=== PATIENT | male | born 1975 | race Caucasian/White ===

== ENCOUNTER 2020-11-07 17:04 | Emergency (ER) | payer SELFPAY ==
[2020-11-07 17:38] VITALS: BP 184/106; PULSE 95; TEMP 98.1; BMI 27.3
== END 2020-11-07 18:49 | disposition home or self-care (01) ==
LOC: JERFT 17:04
DX: L30.9 Dermatitis, unspecified (principal); R21 Rash and other nonspecific skin eruption
CPT/HCPCS: 99281-25

== ENCOUNTER 2020-11-15 20:57 | Inpatient (IN) | payer OTHER ==
[2020-11-15] MEDS ORDERED: FAMOTIDINE 20 MG/50 ML IVPB 20 MG/50 ML MG IVPB ONE ×2 (22:50→22:57)
[2020-11-15] MEDS ORDERED: SODIUM CHLORIDE 1,000 ML IV STA (22:50)
[2020-11-15] MEDS ORDERED: ACETAMINOPHEN 500 MG TABLET (FP) PO ONE (22:50)
[2020-11-15] MEDS ORDERED: ACETAMINOPHEN 325 MG TABLET (FP) ONE (22:56)
[2020-11-15 23:00] LABS: BASO % 0.5 % (0-2.0); EOS % 1.8 % (0-4.5); HEMATOCRIT 31.7 % (35.4-49); HEMOGLOBIN 10.9 GM/dL (11.7-16.9); LYMPH % 22.8 % (8-40); MCHC 34.4 g/dl (32.0-35.9); MEAN CELL VOLUME 78.4 fl (80-96); MEAN PLT VOLUME 8.1 fl (7.5-11.1); MONO % 9.2 % (3.8-10.2); NEUT % 65.7 % (42.8-82.8); PLATELET COUNT 233 10^3/uL (134-434); RBC 4.04 M/mm3 (4.00-5.60); RDW 14.3 % (11.9-15.9)
[2020-11-15 23:21] LABS: CHLORIDE 109 mmol/L (98-107); SODIUM 139 mmol/L (136-145)
[2020-11-15 23:24] LABS: ALBUMIN 2.9 g/dl (3.4-5.0); ANION GAP 16 MMOL/L (8-16); CO2 14 mmol/L (21-32); GLUCOSE,RANDOM 162 mg/dL (74-106); MAGNESIUM 1.4 mg/dL (1.8-2.4)
[2020-11-15 23:26] LABS: SGOT/AST 12 U/L (15-37); SGPT/ALT 34 U/L (13-61)
[2020-11-15 23:29] LABS: BILIRUBIN,TOTAL 0.3 mg/dL (0.2-1)
[2020-11-15 23:30] LABS: ALK PHOS 99 U/L (45-117)
[2020-11-15 23:33] LABS: N-TERMINAL BNP 4760.3 pg/ml (5-125)
[2020-11-15 23:41] LABS: ANISOCYTOSIS 1+
[2020-11-15 23:42] LABS: PLATELET ESTIMATE ADEQUATE
[2020-11-16 00:46] LABS: BLOOD UREA NITROGEN 150.9 mg/dL (7-18); CALCIUM 6.4 mg/dL (8.5-10.1); CREATININE 10.5 mg/dL (0.55-1.3)
[2020-11-16] MEDS ORDERED: SODIUM CHLORIDE 0.45% 1,000 ML IV SCH (01:30)
[2020-11-16 04:08] LABS: EPI CELLS 16 /uL (0-25.1); HYALINE CASTS 1 /uL (0-3.1); PH,URINE 5.5 (5.0-8.0); URINE APPEARANCE CLEAR; URINE BACTERIA 4 /uL (0-1359); URINE BILIRUBIN NEGATIVE (NEGATIVE); URINE COLOR YELLOW; URINE GLUCOSE (UA) 1+ (NEGATIVE); URINE KETONE NEGATIVE (NEGATIVE); URINE LEUK ESTERASE NEGATIVE (NEGATIVE); URINE NITRITE NEGATIVE (NEGATIVE); URINE PROTEIN 3+ (NEGATIVE); URINE RBC 18 /uL (0-23.9); URINE UROBILINOGEN 0.2 mg/dL (0.2-1.0); URINE WBC 21 /uL (0-25.8)
[2020-11-16] MEDS ORDERED: CALCIUM GLUCONATE 10% - 1,000 MG/10 ML VIAL IVPB ONE (04:33)
[2020-11-16] MEDS ORDERED: MAGNESIUM SULF 50% (8.12 MEQ/2 ML-1 GM VIAL) IVPB ONE (04:33)
[2020-11-16 04:38] VITALS: BMI 29.8
[2020-11-16] MEDS ORDERED: amLODIPine BESYLATE 5 MG TABLET (FP) PO ONE (04:40)
[2020-11-16] MEDS: INSULIN SLIDING SCALE (NOVOLOG) 1 VIAL SQ SCH ×4 (06:41→21:12)
[2020-11-16] MEDS ORDERED: LABETALOL HCL 5 MG/1 ML (100MG/20 ML VIAL) IVPUSH ONE (07:00)
[2020-11-16] MEDS ORDERED: LABETALOL HCL 5 MG/1 ML (100MG/20 ML VIAL) IVPB ONE (07:00)
[2020-11-16] MEDS ORDERED: PT OWN MED DRAWER 7, Y5N ONE ×4 (07:33→16:43)
[2020-11-16 07:52] LABS: BASO % 0.3 % (0-2.0); EOS % 1.7 % (0-4.5); HEMATOCRIT 28.9 % (35.4-49); HEMOGLOBIN 9.8 GM/dL (11.7-16.9); LYMPH % 20.3 % (8-40); MEAN CELL VOLUME 79.3 fl (80-96); MEAN PLT VOLUME 8.6 fl (7.5-11.1); MONO % 8.4 % (3.8-10.2); NEUT % 69.3 % (42.8-82.8); PLATELET COUNT 179 10^3/uL (134-434); RBC 3.64 M/mm3 (4.00-5.60); RDW 14.4 % (11.9-15.9); WHITE BLOOD COUNT 8.5 K/mm3 (4.0-10.0)
[2020-11-16 07:55] LABS: INR 0.97 (0.83-1.09); PROTHROMBIN TIME (PATIENT) 11.7 SEC (9.7-13.0)
[2020-11-16 08:13] LABS: CHLORIDE 112 mmol/L (98-107); SODIUM 139 mmol/L (136-145)
[2020-11-16 08:17] LABS: ALBUMIN 2.7 g/dl (3.4-5.0); ANION GAP 16 MMOL/L (8-16); CO2 11 mmol/L (21-32)
[2020-11-16 08:18] LABS: GLUCOSE,RANDOM 139 mg/dL (74-106); MAGNESIUM 1.5 mg/dL (1.8-2.4)
[2020-11-16 08:19] LABS: IRON SERUM 80 ug/dL (50-175); SGOT/AST 14 U/L (15-37); SGPT/ALT 27 U/L (13-61)
[2020-11-16 08:21] LABS: TOTAL IRON BINDING CAPACITY 248 ug/dL (250-450)
[2020-11-16 08:22] LABS: TOT PROT 5.2 g/dl (6.4-8.2)
[2020-11-16 08:23] LABS: ALK PHOS 85 U/L (45-117)
[2020-11-16 08:24] LABS: BILIRUBIN,TOTAL 0.4 mg/dL (0.2-1)
[2020-11-16 08:37] LABS: CALCIUM 6.7 mg/dL (8.5-10.1); CREATININE 9.6 mg/dL (0.55-1.3); PHOSPHOROUS 9.4 mg/dL (2.5-4.9)
[2020-11-16] MEDS: ACETAMINOPHEN 325 MG TABLET (FP) PO PRN ×2 (09:51→14:46)
[2020-11-16] MEDS: oxyCODONE HCL 5 MG TABLET PO PRN (10:45)
[2020-11-16 10:47] LABS: ERYTHROCYTE SEDIMENTATION RATE 64 mm/hr (0-10)
[2020-11-16] MEDS ORDERED: VANCOMYCIN 1 GM in D5W (PRE-DOCKED) 1,000 MG/250 ML IVPB ONE (11:10)
[2020-11-16 11:34] LABS: ARTERIAL BLD GAS O2 SATURATION 85.2 mmHg (95-98); ARTERIAL BLOOD GAS BASE EXCESS -16.2 mmol/L (-2-2); ARTERIAL BLOOD GAS PO2 59.3 mmHg (80-100)
[2020-11-16 11:38] LABS: ALLENS TEST POSITIVE
[2020-11-16 11:41] LABS: ARTERIAL BLOOD GAS pH 7.195 (7.350-7.450)
[2020-11-16] MEDS ORDERED: PIPERACILLIN/TAZOBACTAM 2.25 GM VIAL IVPB ONE ×2 (12:07→16:55)
[2020-11-16] MEDS ORDERED: DEXTROSE 5%-WATER - 50 ML IVPB ONE ×2 (12:07→16:55)
[2020-11-16] MEDS ORDERED: SODIUM CHLORIDE 250 ML IV PRN (12:09)
[2020-11-16] MEDS: PIPERACILLIN/TAZOB 2.25 GM 2.25 GM in DEXTROSE 5%-WATER - 50 ML IVPB SCH ×2 (12:15→17:02)
[2020-11-16] MEDS: FUROSEMIDE 40 MG/4 ML INJECTABLE VIAL IVPUSH SCH (12:24)
[2020-11-16] MEDS: SODIUM BICARBONATE 8.4% - 150 MEQ in DEXTROSE 5%-WATER - 950 ML IV SCH (13:57)
[2020-11-16] MEDS: hydrALAZINE HCL 10 MG TABLET PO SCH ×2 (13:57→21:11)
[2020-11-16] MEDS: ONDANSETRON 4 MG/2 ML VIAL IVPUSH PRN ×2 (15:29→21:14)
[2020-11-16] MEDS ORDERED: INSULIN (NOVOLOG) ASPART 100 UNITS/ML 10ML VIAL ONE ×2 (16:43→21:03)
[2020-11-16 20:13] LABS: SYPHILIS W/ RPR CONF NON-REACTIVE (NONREACTIVE)
[2020-11-16 20:42] LABS: HIV INTERPRETATION NEGATIVE (NEGATIVE)
[2020-11-16] MEDS: HEPARIN NA (PORCINE) 5,000 UNITS/ML 1ML VIAL SQ SCH (21:12)
[2020-11-17] MEDS ORDERED: SODIUM CHLORIDE 250 ML IV PRN (00:45)
[2020-11-17] MEDS ORDERED: PIPERACILLIN/TAZOBACTAM 2.25 GM VIAL IVPB ONE ×2 (00:47→14:14)
[2020-11-17] MEDS ORDERED: DEXTROSE 5%-WATER - 50 ML IVPB ONE ×2 (00:47→14:14)
[2020-11-17] MEDS: PIPERACILLIN/TAZOB 2.25 GM 2.25 GM in DEXTROSE 5%-WATER - 50 ML IVPB SCH ×3 (01:13→18:06)
[2020-11-17] MEDS: oxyCODONE HCL 5 MG TABLET PO PRN (03:49)
[2020-11-17] MEDS: ONDANSETRON 4 MG/2 ML VIAL IVPUSH PRN ×2 (03:50→14:20)
[2020-11-17] MEDS: hydrALAZINE HCL 10 MG TABLET PO SCH (05:34)
[2020-11-17] MEDS: SODIUM BICARBONATE 8.4% - 150 MEQ in DEXTROSE 5%-WATER - 950 ML IV SCH ×2 (05:35→17:18)
[2020-11-17] MEDS: INSULIN SLIDING SCALE (NOVOLOG) 1 VIAL SQ SCH ×4 (06:18→21:06)
[2020-11-17 08:11] LABS: BASO % 0.2 % (0-2.0); EOS % 0.9 % (0-4.5); HEMATOCRIT 29.1 % (35.4-49); HEMOGLOBIN 9.8 GM/dL (11.7-16.9); LYMPH % 12.3 % (8-40); MCH 26.3 pg (25.7-33.7); MCHC 33.8 g/dl (32.0-35.9); MEAN CELL VOLUME 77.8 fl (80-96); MEAN PLT VOLUME 9.2 fl (7.5-11.1); MONO % 7.5 % (3.8-10.2); NEUT % 79.1 % (42.8-82.8); PLATELET COUNT 200 10^3/uL (134-434); RBC 3.74 M/mm3 (4.00-5.60); RDW 14.1 % (11.9-15.9); WHITE BLOOD COUNT 7.6 K/mm3 (4.0-10.0)
[2020-11-17 08:21] LABS: CHLORIDE 101 mmol/L (98-107); SODIUM 139 mmol/L (136-145)
[2020-11-17 08:26] LABS: ALBUMIN 2.6 g/dl (3.4-5.0); ANION GAP 14 MMOL/L (8-16); CO2 24 mmol/L (21-32); GLUCOSE,RANDOM 239 mg/dL (74-106); MAGNESIUM 1.9 mg/dL (1.8-2.4)
[2020-11-17 08:29] LABS: CREATININE 6.9 mg/dL (0.55-1.3); PHOSPHOROUS 7.1 mg/dL (2.5-4.9); SGOT/AST 10 U/L (15-37); SGPT/ALT 22 U/L (13-61)
[2020-11-17 08:30] LABS: BILIRUBIN,TOTAL 0.5 mg/dL (0.2-1); TOT PROT 5.4 g/dl (6.4-8.2)
[2020-11-17 08:32] LABS: ALK PHOS 81 U/L (45-117)
[2020-11-17 08:41] LABS: BLOOD UREA NITROGEN 85.2 mg/dL (7-18); CALCIUM 6.8 mg/dL (8.5-10.1)
[2020-11-17] MEDS: HEPARIN NA (PORCINE) 5,000 UNITS/ML 1ML VIAL SQ SCH ×2 (11:33→21:04)
[2020-11-17] MEDS: amLODIPine BESYLATE 10 MG TABLET (FP) PO SCH (14:20)
[2020-11-17] MEDS: hydrALAZINE HCL 25 MG TABLET (FP) PO SCH ×2 (14:20→21:06)
[2020-11-17] MEDS: FUROSEMIDE 40 MG/4 ML INJECTABLE VIAL IVPUSH SCH (14:20)
[2020-11-17] MEDS ORDERED: PT OWN MED DRAWER 7, Y5N ONE (15:35)
[2020-11-17] MEDS: CALCIUM ACETATE 667 MG CAPSULE (FP) PO SCH (18:07)
[2020-11-17] MEDS: INSULIN (LEVEMIR) 100 UNITS/ML UNITS SQ SCH (21:05)
[2020-11-18] MEDS ORDERED: DEXTROSE 5%-WATER - 50 ML IVPB ONE ×3 (00:29→17:52)
[2020-11-18] MEDS ORDERED: PIPERACILLIN/TAZOBACTAM 2.25 GM VIAL IVPB ONE ×3 (00:29→17:52)
[2020-11-18] MEDS: PIPERACILLIN/TAZOB 2.25 GM 2.25 GM in DEXTROSE 5%-WATER - 50 ML IVPB SCH ×3 (01:07→17:54)
[2020-11-18 04:07] LABS: ANTI-DNAse B 391 U/mL (0-120)
[2020-11-18] MEDS: hydrALAZINE HCL 25 MG TABLET (FP) PO SCH ×3 (05:28→21:12)
[2020-11-18] MEDS: INSULIN SLIDING SCALE (NOVOLOG) 1 VIAL SQ SCH ×4 (06:04→21:13)
[2020-11-18 08:06] LABS: BASO % 0.4 % (0-2.0); EOS % 1.6 % (0-4.5); HEMATOCRIT 29.4 % (35.4-49); LYMPH % 19.3 % (8-40); MCH 26.8 pg (25.7-33.7); MCHC 33.9 g/dl (32.0-35.9); MEAN CELL VOLUME 79.1 fl (80-96); MEAN PLT VOLUME 8.9 fl (7.5-11.1); MONO % 11.6 % (3.8-10.2); NEUT % 67.1 % (42.8-82.8); PLATELET COUNT 173 10^3/uL (134-434); RBC 3.72 M/mm3 (4.00-5.60); RDW 13.8 % (11.9-15.9); WHITE BLOOD COUNT 6.4 K/mm3 (4.0-10.0)
[2020-11-18 08:29] LABS: CALCIUM 7.2 mg/dL (8.5-10.1)
[2020-11-18 08:30] LABS: ALBUMIN 2.5 g/dl (3.4-5.0); MAGNESIUM 1.7 mg/dL (1.8-2.4)
[2020-11-18 08:33] LABS: CREATININE 6.8 mg/dL (0.55-1.3); PHOSPHOROUS 6.9 mg/dL (2.5-4.9)
[2020-11-18 08:34] LABS: BILIRUBIN,TOTAL 0.7 mg/dL (0.2-1); TOT PROT 5.3 g/dl (6.4-8.2)
[2020-11-18] MEDS: CALCIUM ACETATE 667 MG CAPSULE (FP) PO SCH ×3 (09:18→16:36)
[2020-11-18] MEDS: HEPARIN NA (PORCINE) 5,000 UNITS/ML 1ML VIAL SQ SCH ×2 (10:42→21:14)
[2020-11-18] MEDS: FUROSEMIDE 40 MG/4 ML INJECTABLE VIAL IVPUSH SCH (10:42)
[2020-11-18] MEDS: amLODIPine BESYLATE 10 MG TABLET (FP) PO SCH (10:43)
[2020-11-18] MEDS ORDERED: METOCLOPRAMIDE HCL 10 MG TABLET (FP) PO ONE (11:30)
[2020-11-18] MEDS ORDERED: SODIUM CHLORIDE 250 ML IV PRN (16:28)
[2020-11-18 17:10] LABS: ATYPICAL pANCA <1:20 titer (Neg:<1:20); C-ANCA <1:20 titer (Neg:<1:20)
[2020-11-18 17:10] LABS: HEP B CORE AB, TOT Negative (Negative)
[2020-11-18] MEDS: INSULIN (LEVEMIR) 100 UNITS/ML UNITS SQ SCH (21:13)
[2020-11-19] MEDS ORDERED: DEXTROSE 5%-WATER - 50 ML IVPB ONE (01:30)
[2020-11-19] MEDS ORDERED: PIPERACILLIN/TAZOBACTAM 2.25 GM VIAL IVPB ONE (01:30)
[2020-11-19] MEDS: PIPERACILLIN/TAZOB 2.25 GM 2.25 GM in DEXTROSE 5%-WATER - 50 ML IVPB SCH ×2 (01:42→11:49)
[2020-11-19] MEDS: hydrALAZINE HCL 25 MG TABLET (FP) PO SCH ×3 (06:26→21:09)
[2020-11-19] MEDS: INSULIN SLIDING SCALE (NOVOLOG) 1 VIAL SQ SCH ×4 (06:27→21:20)
[2020-11-19 09:04] LABS: HEMATOCRIT 28.3 % (35.4-49); HEMOGLOBIN 9.6 GM/dL (11.7-16.9); MCH 26.5 pg (25.7-33.7); MCHC 33.8 g/dl (32.0-35.9); MEAN CELL VOLUME 78.4 fl (80-96); MEAN PLT VOLUME 9.3 fl (7.5-11.1); PLATELET COUNT 172 10^3/uL (134-434); RDW 13.6 % (11.9-15.9); WHITE BLOOD COUNT 6.9 K/mm3 (4.0-10.0)
[2020-11-19 09:32] LABS: CHLORIDE 97 mmol/L (98-107); SODIUM 135 mmol/L (136-145)
[2020-11-19 09:34] LABS: ALBUMIN 2.4 g/dl (3.4-5.0); ANION GAP 13 MMOL/L (8-16); BLOOD UREA NITROGEN 71.6 mg/dL (7-18); CO2 26 mmol/L (21-32); GLUCOSE,RANDOM 158 mg/dL (74-106); MAGNESIUM 1.7 mg/dL (1.8-2.4)
[2020-11-19 09:37] LABS: SGOT/AST 10 U/L (15-37); SGPT/ALT 18 U/L (13-61)
[2020-11-19 09:39] LABS: BILIRUBIN,TOTAL 0.4 mg/dL (0.2-1); TOT PROT 5.3 g/dl (6.4-8.2)
[2020-11-19 09:40] LABS: ALK PHOS 76 U/L (45-117)
[2020-11-19] MEDS: CALCIUM ACETATE 667 MG CAPSULE (FP) PO SCH ×3 (09:43→17:14)
[2020-11-19 10:38] LABS: BASO % 0.9 % (0-2.0); EOS % 3.1 % (0-4.5); HEMATOCRIT 27.7 % (35.4-49); HEMOGLOBIN 9.4 GM/dL (11.7-16.9); LYMPH % 19.6 % (8-40); MCH 26.6 pg (25.7-33.7); MCHC 34.1 g/dl (32.0-35.9); MEAN CELL VOLUME 78.1 fl (80-96); MEAN PLT VOLUME 9.4 fl (7.5-11.1); MONO % 9.8 % (3.8-10.2); NEUT % 66.6 % (42.8-82.8); PLATELET COUNT 167 10^3/uL (134-434); RBC 3.55 M/mm3 (4.00-5.60); RDW 13.7 % (11.9-15.9); WHITE BLOOD COUNT 6.9 K/mm3 (4.0-10.0)
[2020-11-19] MEDS: HEPARIN NA (PORCINE) 5,000 UNITS/ML 1ML VIAL SQ SCH ×2 (11:48→21:09)
[2020-11-19] MEDS: amLODIPine BESYLATE 10 MG TABLET (FP) PO SCH (13:26)
[2020-11-19] MEDS: FUROSEMIDE 40 MG/4 ML INJECTABLE VIAL IVPUSH SCH (13:26)
[2020-11-19] MEDS ORDERED: MAGNESIUM OXIDE 400 MG TABLET (FP) PO ONE (15:02)
[2020-11-19] MEDS: AMOX TR/POT CLAV 500MG/125MG TABLETS (FP) PO SCH (17:14)
[2020-11-19] MEDS: INSULIN (LEVEMIR) 100 UNITS/ML UNITS SQ SCH (21:21)
[2020-11-20] MEDS: hydrALAZINE HCL 25 MG TABLET (FP) PO SCH ×3 (05:27→21:21)
[2020-11-20] MEDS: INSULIN SLIDING SCALE (NOVOLOG) 1 VIAL SQ SCH ×5 (06:44→21:22)
[2020-11-20] MEDS: CALCIUM ACETATE 667 MG CAPSULE (FP) PO SCH ×3 (08:32→17:00)
[2020-11-20] MEDS: AMOX TR/POT CLAV 500MG/125MG TABLETS (FP) PO SCH ×2 (08:33→17:00)
[2020-11-20] MEDS: FUROSEMIDE 40 MG/4 ML INJECTABLE VIAL IVPUSH SCH (09:09)
[2020-11-20] MEDS: amLODIPine BESYLATE 10 MG TABLET (FP) PO SCH (09:09)
[2020-11-20] MEDS ORDERED: PT OWN MED DRAWER 7, Y5N ONE ×2 (13:18→14:35)
[2020-11-20] MEDS: INSULIN (LEVEMIR) 100 UNITS/ML UNITS SQ SCH (21:21)
[2020-11-21] MEDS: hydrALAZINE HCL 25 MG TABLET (FP) PO SCH ×3 (05:41→21:08)
[2020-11-21] MEDS: INSULIN SLIDING SCALE (NOVOLOG) 1 VIAL SQ SCH ×4 (06:01→21:09)
[2020-11-21 08:18] LABS: EOS % 3.1 % (0-4.5); HEMATOCRIT 30.4 % (35.4-49); HEMOGLOBIN 10.3 GM/dL (11.7-16.9); LYMPH % 14.7 % (8-40); MCH 26.7 pg (25.7-33.7); MCHC 33.9 g/dl (32.0-35.9); MEAN CELL VOLUME 78.9 fl (80-96); MEAN PLT VOLUME 8.7 fl (7.5-11.1); MONO % 6.7 % (3.8-10.2); NEUT % 74.5 % (42.8-82.8); PLATELET COUNT 198 10^3/uL (134-434); PROTHROMBIN TIME (PATIENT) 12.3 SEC (9.7-13.0); RBC 3.85 M/mm3 (4.00-5.60); RDW 13.5 % (11.9-15.9); WHITE BLOOD COUNT 9.4 K/mm3 (4.0-10.0)
[2020-11-21 08:31] LABS: CHLORIDE 95 mmol/L (98-107); SODIUM 133 mmol/L (136-145)
[2020-11-21] MEDS: AMOX TR/POT CLAV 500MG/125MG TABLETS (FP) PO SCH (08:36)
[2020-11-21] MEDS: CALCIUM ACETATE 667 MG CAPSULE (FP) PO SCH ×3 (08:36→17:13)
[2020-11-21 08:37] LABS: ALBUMIN 2.8 g/dl (3.4-5.0); ANION GAP 14 MMOL/L (8-16); BLOOD UREA NITROGEN 67.7 mg/dL (7-18); CO2 24 mmol/L (21-32); GLUCOSE,RANDOM 197 mg/dL (74-106)
[2020-11-21 08:39] LABS: PHOSPHOROUS 8.7 mg/dL (2.5-4.9); SGPT/ALT 38 U/L (13-61)
[2020-11-21 08:40] LABS: SGOT/AST 25 U/L (15-37)
[2020-11-21 08:41] LABS: BILIRUBIN,TOTAL 0.3 mg/dL (0.2-1); TOT PROT 6.3 g/dl (6.4-8.2)
[2020-11-21 08:42] LABS: ALK PHOS 99 U/L (45-117)
[2020-11-21 08:43] LABS: CALCIUM 8.3 mg/dL (8.5-10.1); CREATININE 9.6 mg/dL (0.55-1.3)
[2020-11-21] MEDS: FUROSEMIDE 40 MG/4 ML INJECTABLE VIAL IVPUSH SCH (09:00)
[2020-11-21] MEDS: amLODIPine BESYLATE 10 MG TABLET (FP) PO SCH (09:00)
[2020-11-21] MEDS ORDERED: MIDAZOLAM HCL 2 MG/2 ML SINGLE DOSE VIAL IVPUSH ONE (10:40)
[2020-11-21] MEDS ORDERED: SODIUM CHLORIDE 250 ML IV PRN (12:49)
[2020-11-21] MEDS ORDERED: INSULIN (NOVOLOG) ASPART 100 UNITS/ML 10ML VIAL ONE (17:06)
[2020-11-21] MEDS: INSULIN (LEVEMIR) 100 UNITS/ML UNITS SQ SCH (21:05)
[2020-11-22] MEDS: hydrALAZINE HCL 25 MG TABLET (FP) PO SCH ×3 (06:14→21:16)
[2020-11-22] MEDS: INSULIN SLIDING SCALE (NOVOLOG) 1 VIAL SQ SCH ×4 (06:16→21:16)
[2020-11-22] MEDS: INSULIN (LEVEMIR) 100 UNITS/ML UNITS SQ SCH ×2 (06:17→21:17)
[2020-11-22 08:29] LABS: BASO % 0.7 % (0-2.0); EOS % 2.8 % (0-4.5); HEMATOCRIT 26.3 % (35.4-49); HEMOGLOBIN 9.1 GM/dL (11.7-16.9); LYMPH % 15.7 % (8-40); MCH 26.9 pg (25.7-33.7); MCHC 34.5 g/dl (32.0-35.9); MONO % 7.3 % (3.8-10.2); NEUT % 73.5 % (42.8-82.8); PLATELET COUNT 184 10^3/uL (134-434); RBC 3.37 M/mm3 (4.00-5.60); RDW 13.7 % (11.9-15.9); WHITE BLOOD COUNT 8.9 K/mm3 (4.0-10.0)
[2020-11-22 08:41] LABS: CHLORIDE 96 mmol/L (98-107); SODIUM 131 mmol/L (136-145)
[2020-11-22 08:45] LABS: ALBUMIN 2.8 g/dl (3.4-5.0); ANION GAP 13 MMOL/L (8-16); BLOOD UREA NITROGEN 81.4 mg/dL (7-18); CALCIUM 7.9 mg/dL (8.5-10.1); CO2 22 mmol/L (21-32); GLUCOSE,RANDOM 153 mg/dL (74-106)
[2020-11-22 08:48] LABS: SGOT/AST 19 U/L (15-37); SGPT/ALT 36 U/L (13-61)
[2020-11-22 08:50] LABS: BILIRUBIN,TOTAL 0.3 mg/dL (0.2-1); TOT PROT 6.1 g/dl (6.4-8.2)
[2020-11-22 08:51] LABS: ALK PHOS 96 U/L (45-117)
[2020-11-22 08:57] LABS: CREATININE 10.2 mg/dL (0.55-1.3)
[2020-11-22] MEDS: CALCIUM ACETATE 667 MG CAPSULE (FP) PO SCH ×3 (09:44→16:45)
[2020-11-22] MEDS: FUROSEMIDE 40 MG/4 ML INJECTABLE VIAL IVPUSH SCH (09:44)
[2020-11-22] MEDS: amLODIPine BESYLATE 10 MG TABLET (FP) PO SCH (09:45)
[2020-11-22 10:18] LABS: PHOSPHOROUS 8.3 mg/dL (2.5-4.9)
[2020-11-22] MEDS: CALCIUM 250MG/VIT-D 125 UNITS 1 COMBO TABLET PO SCH ×2 (14:30→21:19)
[2020-11-22] MEDS ORDERED: BENZOCAINE/MENTH/CETYLPYRD CL 1 EACH LOZENGE MM PRN (16:50)
[2020-11-22] MEDS: HEPARIN NA (PORCINE) 5,000 UNITS/ML 1ML VIAL SQ SCH (21:16)
[2020-11-22] MEDS: ACETAMINOPHEN 325 MG TABLET (FP) PO PRN (21:19)
[2020-11-23] MEDS: hydrALAZINE HCL 25 MG TABLET (FP) PO SCH ×3 (06:21→21:04)
[2020-11-23] MEDS: INSULIN (LEVEMIR) 100 UNITS/ML UNITS SQ SCH ×2 (06:21→21:58)
[2020-11-23] MEDS: INSULIN SLIDING SCALE (NOVOLOG) 1 VIAL SQ SCH ×4 (06:23→21:58)
[2020-11-23 08:07] LABS: BASO % 0.9 % (0-2.0); EOS % 2.5 % (0-4.5); HEMATOCRIT 25.8 % (35.4-49); HEMOGLOBIN 8.7 GM/dL (11.7-16.9); LYMPH % 17.6 % (8-40); MCH 26.6 pg (25.7-33.7); MCHC 33.7 g/dl (32.0-35.9); MEAN CELL VOLUME 78.8 fl (80-96); MEAN PLT VOLUME 9.1 fl (7.5-11.1); MONO % 10.5 % (3.8-10.2); NEUT % 68.5 % (42.8-82.8); PLATELET COUNT 162 10^3/uL (134-434); RBC 3.27 M/mm3 (4.00-5.60); RDW 13.7 % (11.9-15.9); WHITE BLOOD COUNT 6.2 K/mm3 (4.0-10.0)
[2020-11-23 08:10] LABS: ALBUMIN 2.6 g/dl (3.4-5.0); CALCIUM 7.7 mg/dL (8.5-10.1); MAGNESIUM 2.1 mg/dL (1.8-2.4)
[2020-11-23 08:13] LABS: CREATININE 6.8 mg/dL (0.55-1.3); PHOSPHOROUS 5.7 mg/dL (2.5-4.9)
[2020-11-23 08:15] LABS: BILIRUBIN,TOTAL 0.4 mg/dL (0.2-1); TOT PROT 5.6 g/dl (6.4-8.2)
[2020-11-23 08:49] LABS: BLOOD UREA NITROGEN 39.3 mg/dL (7-18)
[2020-11-23] MEDS: amLODIPine BESYLATE 10 MG TABLET (FP) PO SCH (09:24)
[2020-11-23] MEDS: CALCIUM ACETATE 667 MG CAPSULE (FP) PO SCH ×3 (09:30→18:49)
[2020-11-23] MEDS: HEPARIN NA (PORCINE) 5,000 UNITS/ML 1ML VIAL SQ SCH ×2 (09:30→21:04)
[2020-11-23] MEDS: CALCIUM 250MG/VIT-D 125 UNITS 1 COMBO TABLET PO SCH ×2 (09:30→21:04)
[2020-11-23] MEDS ORDERED: TORSEMIDE 20 MG TABLET (FP) PO SCH (10:00)
[2020-11-23] MEDS ORDERED: LIDOCAINE HCL 1%, 10 MG/ML (20ML VIAL) ONE (15:34)
[2020-11-23] MEDS ORDERED: HEPARIN NA (PORCINE) 5,000 UNITS/ML 1ML VIAL ONE (15:34)
[2020-11-23] MEDS ORDERED: ONDANSETRON 4 MG/2 ML VIAL IVPUSH PRN ×3 (16:09→17:49)
[2020-11-23] MEDS ORDERED: LACTATED RINGERS SOLUTION 1,000 ML IV SCH ×2 (16:15→17:49)
[2020-11-23] MEDS ORDERED: PROPOFOL 20 ML ONE (16:17)
[2020-11-23] MEDS ORDERED: MIDAZOLAM HCL 2 MG/2 ML SINGLE DOSE VIAL ONE ×2 (16:17→16:29)
[2020-11-23] MEDS ORDERED: LIDOCAINE HCL 1% PRESERVATIVE FREE - 30ML VIAL IJ ONE ×2 (16:30→16:55)
[2020-11-23] MEDS ORDERED: ceFAZolin SODIUM 1 GM VIAL ONE (16:54)
[2020-11-23] MEDS ORDERED: ceFAZolin 2 GRAM PREMIX BAG IVPB ONE (16:55)
[2020-11-23] MEDS ORDERED: HEPARIN NA (PORCINE) 1,000 UNITS/ML 10ML M-D VIAL SQ ONE (16:57)
[2020-11-23] MEDS ORDERED: INSULIN (NOVOLOG) ASPART 100 UNITS/ML 10ML VIAL ONE (21:54)
[2020-11-23] MEDS: BENZOCAINE/MENTH/CETYLPYRD CL 1 EACH LOZENGE MM PRN (22:15)
[2020-11-24] MEDS: ACETAMINOPHEN 325 MG TABLET (FP) PO PRN ×3 (02:58→21:09)
[2020-11-24] MEDS: hydrALAZINE HCL 25 MG TABLET (FP) PO SCH ×3 (05:48→21:10)
[2020-11-24] MEDS: INSULIN SLIDING SCALE (NOVOLOG) 1 VIAL SQ SCH ×4 (06:28→21:11)
[2020-11-24] MEDS: INSULIN (LEVEMIR) 100 UNITS/ML UNITS SQ SCH ×2 (06:30→21:10)
[2020-11-24 07:25] LABS: BASO % 0.9 % (0-2.0); EOS % 3.9 % (0-4.5); HEMATOCRIT 25.9 % (35.4-49); HEMOGLOBIN 8.7 GM/dL (11.7-16.9); LYMPH % 18.9 % (8-40); MCH 26.4 pg (25.7-33.7); MCHC 33.6 g/dl (32.0-35.9); MEAN CELL VOLUME 78.7 fl (80-96); MONO % 8.5 % (3.8-10.2); NEUT % 67.8 % (42.8-82.8); PLATELET COUNT 178 10^3/uL (134-434); RBC 3.29 M/mm3 (4.00-5.60); RDW 13.5 % (11.9-15.9); WHITE BLOOD COUNT 6.5 K/mm3 (4.0-10.0)
[2020-11-24 07:40] LABS: CHLORIDE 98 mmol/L (98-107); SODIUM 133 mmol/L (136-145)
[2020-11-24 07:45] LABS: ALBUMIN 2.8 g/dl (3.4-5.0); ANION GAP 11 MMOL/L (8-16); BLOOD UREA NITROGEN 52.8 mg/dL (7-18); CO2 24 mmol/L (21-32); MAGNESIUM 2.1 mg/dL (1.8-2.4)
[2020-11-24 07:46] LABS: GLUCOSE,RANDOM 130 mg/dL (74-106)
[2020-11-24 07:48] LABS: SGOT/AST 19 U/L (15-37); SGPT/ALT 27 U/L (13-61)
[2020-11-24 07:50] LABS: BILIRUBIN,TOTAL 0.7 mg/dL (0.2-1); TOT PROT 5.9 g/dl (6.4-8.2)
[2020-11-24 07:51] LABS: ALK PHOS 89 U/L (45-117)
[2020-11-24] MEDS: CALCIUM ACETATE 667 MG CAPSULE (FP) PO SCH ×3 (08:38→17:13)
[2020-11-24] MEDS: HEPARIN NA (PORCINE) 5,000 UNITS/ML 1ML VIAL SQ SCH ×2 (09:00→21:09)
[2020-11-24] MEDS: TORSEMIDE 20 MG TABLET (FP) PO SCH (09:01)
[2020-11-24] MEDS: amLODIPine BESYLATE 10 MG TABLET (FP) PO SCH (09:02)
[2020-11-24] MEDS: LOSARTAN POTASSIUM 50 MG TABLET PO SCH (09:02)
[2020-11-24] MEDS: CALCIUM 250MG/VIT-D 125 UNITS 1 COMBO TABLET PO SCH ×2 (09:02→21:10)
[2020-11-24] MEDS ORDERED: SODIUM CHLORIDE 250 ML IV PRN (09:09)
[2020-11-24] MEDS ORDERED: LOSARTAN POTASSIUM 50 MG TABLET PO SCH (10:00)
[2020-11-24] MEDS ORDERED: EPOETIN ALFA-EPBX 10,000 UNIT/ML VIAL IVPUSH ONE (10:00)
[2020-11-24] MEDS ORDERED: INSULIN (NOVOLOG) ASPART 100 UNITS/ML 10ML VIAL ONE ×3 (13:51→21:07)
[2020-11-24] MEDS: BENZOCAINE/MENTH/CETYLPYRD CL 1 EACH LOZENGE MM PRN (15:01)
[2020-11-24] MEDS ORDERED: ACETAMINOPHEN 1000 MG/100 ML VIAL (NON FORMULARY) IVPB ONE (15:40)
[2020-11-24] MEDS ORDERED: PT OWN MED DRAWER 7, Y5N ONE (21:06)
[2020-11-24] MEDS: guaiFENesin/D-M SUGAR-FREE/ACLHOL-FREE 118 ML BOTTLE PO PRN (21:10)
[2020-11-25] MEDS: INSULIN SLIDING SCALE (NOVOLOG) 1 VIAL SQ SCH ×4 (06:06→21:04)
[2020-11-25] MEDS: hydrALAZINE HCL 25 MG TABLET (FP) PO SCH ×3 (06:07→21:05)
[2020-11-25] MEDS: INSULIN (LEVEMIR) 100 UNITS/ML UNITS SQ SCH ×2 (06:07→21:03)
[2020-11-25] MEDS: guaiFENesin/D-M SUGAR-FREE/ACLHOL-FREE 118 ML BOTTLE PO PRN ×3 (06:11→22:54)
[2020-11-25] MEDS: CALCIUM ACETATE 667 MG CAPSULE (FP) PO SCH ×3 (08:59→16:51)
[2020-11-25] MEDS ORDERED: PT OWN MED DRAWER 7, Y5N ONE ×4 (09:40→22:52)
[2020-11-25] MEDS: TORSEMIDE 20 MG TABLET (FP) PO SCH (09:43)
[2020-11-25] MEDS: HEPARIN NA (PORCINE) 5,000 UNITS/ML 1ML VIAL SQ SCH ×2 (09:44→21:02)
[2020-11-25] MEDS: ACETAMINOPHEN 325 MG TABLET (FP) PO PRN (09:47)
[2020-11-25] MEDS: CALCIUM 250MG/VIT-D 125 UNITS 1 COMBO TABLET PO SCH ×2 (09:47→21:05)
[2020-11-25] MEDS ORDERED: amLODIPine BESYLATE 5 MG TABLET (FP) PO ONE (10:00)
[2020-11-25] MEDS ORDERED: INSULIN (NOVOLOG) ASPART 100 UNITS/ML 10ML VIAL ONE ×2 (11:48→20:32)
[2020-11-25] MEDS ORDERED: VANCOMYCIN 1 GM in D5W (PRE-DOCKED) 1,000 MG/250 ML IVPB ONE (12:21)
[2020-11-25] MEDS: GABAPENTIN 100 MG CAPSULE PO SCH (13:02)
[2020-11-25 16:22] LABS: EPI CELLS 11 /uL (0-25.1); HYALINE CASTS 1 /uL (0-3.1); PH,URINE 7.5 (5.0-8.0); URINE APPEARANCE CLEAR; URINE BACTERIA 19 /uL (0-1359); URINE BILIRUBIN NEGATIVE (NEGATIVE); URINE COLOR YELLOW; URINE GLUCOSE (UA) 1+ (NEGATIVE); URINE KETONE NEGATIVE (NEGATIVE); URINE LEUK ESTERASE NEGATIVE (NEGATIVE); URINE NITRITE NEGATIVE (NEGATIVE); URINE PROTEIN 4+ (NEGATIVE); URINE RBC 219 /uL (0-23.9); URINE UROBILINOGEN 0.2 mg/dL (0.2-1.0); URINE WBC 8 /uL (0-25.8)
[2020-11-26] MEDS: hydrALAZINE HCL 25 MG TABLET (FP) PO SCH ×3 (05:59→21:53)
[2020-11-26] MEDS: INSULIN (LEVEMIR) 100 UNITS/ML UNITS SQ SCH ×2 (06:00→22:12)
[2020-11-26] MEDS: INSULIN SLIDING SCALE (NOVOLOG) 1 VIAL SQ SCH ×4 (06:05→22:11)
[2020-11-26] MEDS: guaiFENesin/D-M SUGAR-FREE/ACLHOL-FREE 118 ML BOTTLE PO PRN ×2 (06:07→12:27)
[2020-11-26] MEDS ORDERED: VANCOMYCIN 1 GM PREMIX - 200 ML IVPB ONE (08:00)
[2020-11-26] MEDS ORDERED: SODIUM CHLORIDE 250 ML IV PRN (09:10)
[2020-11-26] MEDS ORDERED: EPOETIN ALFA-EPBX 10,000 UNIT/ML VIAL IVPUSH ONE (09:15)
[2020-11-26 09:54] LABS: HEMATOCRIT 24.6 % (35.4-49); HEMOGLOBIN 8.5 GM/dL (11.7-16.9); MCHC 34.7 g/dl (32.0-35.9); MEAN CELL VOLUME 77.9 fl (80-96); MEAN PLT VOLUME 8.8 fl (7.5-11.1); PLATELET COUNT 180 10^3/uL (134-434); RBC 3.16 M/mm3 (4.00-5.60); RDW 13.5 % (11.9-15.9); WHITE BLOOD COUNT 8.2 K/mm3 (4.0-10.0)
[2020-11-26 09:57] LABS: CHLORIDE 96 mmol/L (98-107); SODIUM 134 mmol/L (136-145)
[2020-11-26 09:59] LABS: BLOOD UREA NITROGEN 44.8 mg/dL (7-18)
[2020-11-26 10:02] LABS: GLUCOSE,RANDOM 171 mg/dL (74-106)
[2020-11-26 10:05] LABS: ANION GAP 12 MMOL/L (8-16); CALCIUM 8.1 mg/dL (8.5-10.1); CO2 27 mmol/L (21-32)
[2020-11-26 10:09] LABS: CREATININE 7.6 mg/dL (0.55-1.3); PHOSPHOROUS 4.9 mg/dL (2.5-4.9)
[2020-11-26] MEDS ORDERED: PT OWN MED DRAWER 7, Y5N ONE ×4 (12:18→18:58)
[2020-11-26] MEDS: TORSEMIDE 20 MG TABLET (FP) PO SCH (12:24)
[2020-11-26] MEDS: CALCIUM ACETATE 667 MG CAPSULE (FP) PO SCH ×3 (12:24→16:55)
[2020-11-26] MEDS: LOSARTAN POTASSIUM 50 MG TABLET PO SCH (12:24)
[2020-11-26] MEDS: GABAPENTIN 100 MG CAPSULE PO SCH (12:25)
[2020-11-26] MEDS: amLODIPine BESYLATE 10 MG TABLET (FP) PO SCH (12:25)
[2020-11-26] MEDS: CALCIUM 250MG/VIT-D 125 UNITS 1 COMBO TABLET PO SCH ×2 (12:25→21:53)
[2020-11-26] MEDS: HEPARIN NA (PORCINE) 5,000 UNITS/ML 1ML VIAL SQ SCH ×2 (12:26→21:53)
[2020-11-27] MEDS: hydrALAZINE HCL 25 MG TABLET (FP) PO SCH ×3 (06:11→21:15)
[2020-11-27] MEDS: INSULIN (LEVEMIR) 100 UNITS/ML UNITS SQ SCH ×2 (06:11→21:16)
[2020-11-27] MEDS: INSULIN SLIDING SCALE (NOVOLOG) 1 VIAL SQ SCH ×4 (06:12→21:12)
[2020-11-27] MEDS ORDERED: PT OWN MED DRAWER 7, Y5N ONE ×2 (09:38→20:43)
[2020-11-27] MEDS: GABAPENTIN 100 MG CAPSULE PO SCH (09:47)
[2020-11-27] MEDS: CALCIUM ACETATE 667 MG CAPSULE (FP) PO SCH ×3 (09:47→16:37)
[2020-11-27] MEDS: TORSEMIDE 20 MG TABLET (FP) PO SCH (09:47)
[2020-11-27] MEDS: HEPARIN NA (PORCINE) 5,000 UNITS/ML 1ML VIAL SQ SCH ×2 (09:47→21:14)
[2020-11-27] MEDS: guaiFENesin/D-M SUGAR-FREE/ACLHOL-FREE 118 ML BOTTLE PO PRN ×3 (09:49→23:00)
[2020-11-27] MEDS: CALCIUM 250MG/VIT-D 125 UNITS 1 COMBO TABLET PO SCH ×2 (09:49→22:35)
[2020-11-27] MEDS: amLODIPine BESYLATE 10 MG TABLET (FP) PO SCH (10:42)
[2020-11-27] MEDS: LOSARTAN POTASSIUM 50 MG TABLET PO SCH (10:42)
[2020-11-27] MEDS: POLYETHYLENE GLYCOL (HEALTHYLAX) 3350 17 GM PACKET PO SCH ×2 (11:18→21:14)
[2020-11-27] MEDS ORDERED: INSULIN (NOVOLOG) ASPART 100 UNITS/ML 10ML VIAL ONE (20:43)
[2020-11-27] MEDS: DOCUSATE SODIUM 100 MG CAPSULE (FP) PO SCH (21:14)
[2020-11-28] MEDS: INSULIN (LEVEMIR) 100 UNITS/ML UNITS SQ SCH ×2 (06:11→21:07)
[2020-11-28] MEDS: hydrALAZINE HCL 25 MG TABLET (FP) PO SCH ×3 (06:11→21:05)
[2020-11-28] MEDS: INSULIN SLIDING SCALE (NOVOLOG) 1 VIAL SQ SCH ×4 (06:15→21:11)
[2020-11-28 08:08] LABS: BASO % 0.8 % (0-2.0); EOS % 3.3 % (0-4.5); HEMATOCRIT 24.8 % (35.4-49); HEMOGLOBIN 8.5 GM/dL (11.7-16.9); LYMPH % 20.5 % (8-40); MCHC 34.3 g/dl (32.0-35.9); MEAN CELL VOLUME 78.7 fl (80-96); MEAN PLT VOLUME 8.7 fl (7.5-11.1); MONO % 6.4 % (3.8-10.2); PLATELET COUNT 233 10^3/uL (134-434); RBC 3.15 M/mm3 (4.00-5.60); RDW 13.4 % (11.9-15.9); WHITE BLOOD COUNT 6.6 K/mm3 (4.0-10.0)
[2020-11-28 08:26] LABS: CHLORIDE 96 mmol/L (98-107); SODIUM 132 mmol/L (136-145)
[2020-11-28 08:28] LABS: CALCIUM 8.4 mg/dL (8.5-10.1)
[2020-11-28 08:29] LABS: ALBUMIN 2.6 g/dl (3.4-5.0); ANION GAP 10 MMOL/L (8-16); BLOOD UREA NITROGEN 48.2 mg/dL (7-18); CO2 26 mmol/L (21-32); GLUCOSE,RANDOM 110 mg/dL (74-106)
[2020-11-28 08:32] LABS: SGOT/AST 21 U/L (15-37); SGPT/ALT 25 U/L (13-61)
[2020-11-28 08:33] LABS: BILIRUBIN,TOTAL 0.3 mg/dL (0.2-1); TOT PROT 6.2 g/dl (6.4-8.2)
[2020-11-28 08:35] LABS: ALK PHOS 98 U/L (45-117); CREATININE 7.5 mg/dL (0.55-1.3)
[2020-11-28] MEDS: CALCIUM ACETATE 667 MG CAPSULE (FP) PO SCH ×3 (09:00→17:27)
[2020-11-28] MEDS: LOSARTAN POTASSIUM 25 MG TABLET PO SCH (09:16)
[2020-11-28] MEDS: POLYETHYLENE GLYCOL (HEALTHYLAX) 3350 17 GM PACKET PO SCH ×3 (09:16→21:06)
[2020-11-28] MEDS: TORSEMIDE 20 MG TABLET (FP) PO SCH (09:16)
[2020-11-28] MEDS: GABAPENTIN 100 MG CAPSULE PO SCH (09:17)
[2020-11-28] MEDS: amLODIPine BESYLATE 10 MG TABLET (FP) PO SCH (09:17)
[2020-11-28] MEDS: HEPARIN NA (PORCINE) 5,000 UNITS/ML 1ML VIAL SQ SCH ×2 (09:17→21:05)
[2020-11-28] MEDS ORDERED: PT OWN MED DRAWER 7, Y5N ONE ×3 (09:26→20:36)
[2020-11-28] MEDS: CALCIUM 250MG/VIT-D 125 UNITS 1 COMBO TABLET PO SCH ×2 (11:36→21:05)
[2020-11-28] MEDS: DOCUSATE SODIUM 100 MG CAPSULE (FP) PO SCH (21:05)
[2020-11-28] MEDS: guaiFENesin/D-M SUGAR-FREE/ACLHOL-FREE 118 ML BOTTLE PO PRN (21:08)
[2020-11-29] MEDS: INSULIN SLIDING SCALE (NOVOLOG) 1 VIAL SQ SCH ×4 (06:38→21:49)
[2020-11-29] MEDS: hydrALAZINE HCL 25 MG TABLET (FP) PO SCH ×3 (06:39→21:42)
[2020-11-29] MEDS: INSULIN (LEVEMIR) 100 UNITS/ML UNITS SQ SCH ×2 (06:39→21:50)
[2020-11-29] MEDS ORDERED: SODIUM CHLORIDE 250 ML IV PRN (07:16)
[2020-11-29 07:24] LABS: BASO % 0.7 % (0-2.0); EOS % 3.1 % (0-4.5); HEMOGLOBIN 7.9 GM/dL (11.7-16.9); LYMPH % 19.8 % (8-40); MCHC 34.3 g/dl (32.0-35.9); MEAN CELL VOLUME 78.6 fl (80-96); MEAN PLT VOLUME 8.6 fl (7.5-11.1); MONO % 7.1 % (3.8-10.2); NEUT % 69.3 % (42.8-82.8); PLATELET COUNT 225 10^3/uL (134-434); RBC 2.93 M/mm3 (4.00-5.60); RDW 13.4 % (11.9-15.9); WHITE BLOOD COUNT 5.3 K/mm3 (4.0-10.0)
[2020-11-29 07:38] LABS: CHLORIDE 97 mmol/L (98-107); SODIUM 131 mmol/L (136-145)
[2020-11-29 07:49] LABS: ALBUMIN 2.4 g/dl (3.4-5.0); BLOOD UREA NITROGEN 62.6 mg/dL (7-18); GLUCOSE,RANDOM 133 mg/dL (74-106)
[2020-11-29 07:50] LABS: ANION GAP 11 MMOL/L (8-16); CALCIUM 8.3 mg/dL (8.5-10.1); CO2 23 mmol/L (21-32); MAGNESIUM 2.2 mg/dL (1.8-2.4)
[2020-11-29 07:52] LABS: SGOT/AST 16 U/L (15-37); SGPT/ALT 25 U/L (13-61)
[2020-11-29 07:54] LABS: BILIRUBIN,TOTAL 0.8 mg/dL (0.2-1); TOT PROT 5.7 g/dl (6.4-8.2)
[2020-11-29 07:55] LABS: ALK PHOS 96 U/L (45-117); CREATININE 8.2 mg/dL (0.55-1.3)
[2020-11-29] MEDS ORDERED: EPOETIN ALFA-EPBX 3,000 UNIT/ML VIAL SQ ONE (08:00)
[2020-11-29] MEDS: CALCIUM ACETATE 667 MG CAPSULE (FP) PO SCH ×3 (08:34→17:22)
[2020-11-29] MEDS ORDERED: PT OWN MED DRAWER 7, Y5N ONE ×2 (12:08→18:40)
[2020-11-29] MEDS: POLYETHYLENE GLYCOL (HEALTHYLAX) 3350 17 GM PACKET PO SCH ×2 (12:21→21:42)
[2020-11-29] MEDS: TORSEMIDE 20 MG TABLET (FP) PO SCH (12:22)
[2020-11-29] MEDS: LOSARTAN POTASSIUM 25 MG TABLET PO SCH (12:22)
[2020-11-29] MEDS: HEPARIN NA (PORCINE) 5,000 UNITS/ML 1ML VIAL SQ SCH ×2 (12:23→21:44)
[2020-11-29] MEDS: GABAPENTIN 100 MG CAPSULE PO SCH (12:23)
[2020-11-29] MEDS: amLODIPine BESYLATE 10 MG TABLET (FP) PO SCH (12:23)
[2020-11-29] MEDS: CALCIUM 250MG/VIT-D 125 UNITS 1 COMBO TABLET PO SCH ×2 (12:24→21:42)
[2020-11-29] MEDS: DOCUSATE SODIUM 100 MG CAPSULE (FP) PO SCH (21:41)
[2020-11-30] MEDS: INSULIN (LEVEMIR) 100 UNITS/ML UNITS SQ SCH (06:14)
[2020-11-30] MEDS: INSULIN SLIDING SCALE (NOVOLOG) 1 VIAL SQ SCH ×2 (06:14→11:45)
[2020-11-30] MEDS: hydrALAZINE HCL 25 MG TABLET (FP) PO SCH ×2 (06:14→14:06)
[2020-11-30 08:11] LABS: BASO % 0.8 % (0-2.0); EOS % 2.6 % (0-4.5); HEMATOCRIT 22.4 % (35.4-49); HEMOGLOBIN 7.7 GM/dL (11.7-16.9); LYMPH % 24.5 % (8-40); MCH 27.2 pg (25.7-33.7); MCHC 34.4 g/dl (32.0-35.9); MEAN CELL VOLUME 78.9 fl (80-96); MEAN PLT VOLUME 8.1 fl (7.5-11.1); MONO % 9.2 % (3.8-10.2); NEUT % 62.9 % (42.8-82.8); PLATELET COUNT 240 10^3/uL (134-434); RBC 2.83 M/mm3 (4.00-5.60); RDW 13.8 % (11.9-15.9); WHITE BLOOD COUNT 4.7 K/mm3 (4.0-10.0)
[2020-11-30 08:43] LABS: CALCIUM 7.9 mg/dL (8.5-10.1)
[2020-11-30 08:44] LABS: ALBUMIN 2.3 g/dl (3.4-5.0)
[2020-11-30 08:47] LABS: CREATININE 5.6 mg/dL (0.55-1.3)
[2020-11-30 08:48] LABS: BILIRUBIN,TOTAL 0.3 mg/dL (0.2-1); TOT PROT 5.6 g/dl (6.4-8.2)
[2020-11-30 08:58] LABS: BLOOD UREA NITROGEN 27.3 mg/dL (7-18)
[2020-11-30] MEDS ORDERED: PT OWN MED DRAWER 7, Y5N ONE (09:25)
[2020-11-30] MEDS: HEPARIN NA (PORCINE) 5,000 UNITS/ML 1ML VIAL SQ SCH (09:38)
[2020-11-30] MEDS: CALCIUM ACETATE 667 MG CAPSULE (FP) PO SCH ×2 (09:38→11:45)
[2020-11-30] MEDS: POLYETHYLENE GLYCOL (HEALTHYLAX) 3350 17 GM PACKET PO SCH (09:38)
[2020-11-30] MEDS: amLODIPine BESYLATE 10 MG TABLET (FP) PO SCH (09:38)
[2020-11-30] MEDS: GABAPENTIN 100 MG CAPSULE PO SCH (09:38)
[2020-11-30] MEDS: TORSEMIDE 20 MG TABLET (FP) PO SCH (09:38)
[2020-11-30] MEDS: LOSARTAN POTASSIUM 25 MG TABLET PO SCH (09:38)
[2020-11-30] MEDS: CALCIUM 250MG/VIT-D 125 UNITS 1 COMBO TABLET PO SCH (09:38)
[2020-11-30 11:31] VITALS: PULSE 99
[2020-11-30] MEDS ORDERED: INSULIN (NOVOLOG) ASPART 100 UNITS/ML 10ML VIAL ONE (11:32)
[2020-11-30 14:20] VITALS: BP 151/78; TEMP 98.1
== END 2020-11-30 15:06 | disposition home or self-care (01) | DRG 469 ==
LOC: JER 20:57 → JERBED 11-16 02:08 → J7W 11-16 03:54
PROVIDERS: ADMIT Internal Medicine; ATTEND Nurse Practitioner Family
PROC: 05HM33Z Insertion of Infusion Device into Right Internal Jugular Vein, Percutaneous Approach (ICD-10-PCS; principal; 2020-11-17)
PROC: B543ZZA Ultrasonography of Right Jugular Veins, Guidance (ICD-10-PCS; 2020-11-17)
PROC: 0TB03ZX Excision of Right Kidney, Percutaneous Approach, Diagnostic (ICD-10-PCS; 2020-11-21)
PROC: 0JH63XZ Insertion of Tunneled Vascular Access Device into Chest Subcutaneous Tissue and Fascia, Percutaneous Approach (ICD-10-PCS; 2020-11-23)
PROC: 05HM33Z Insertion of Infusion Device into Right Internal Jugular Vein, Percutaneous Approach (ICD-10-PCS; 2020-11-23)
PROC: B513ZZA Fluoroscopy of Right Jugular Veins, Guidance (ICD-10-PCS; 2020-11-23)
DX: N17.0 Acute kidney failure with tubular necrosis (principal); E83.51 Hypocalcemia; E83.42 Hypomagnesemia; N17.9 Acute kidney failure, unspecified; R60.0 Localized edema; L98.9 Disorder of the skin and subcutaneous tissue, unspecified; E11.65 Type 2 diabetes mellitus with hyperglycemia; E83.39 Other disorders of phosphorus metabolism; E87.2 Acidosis; R00.0 Tachycardia, unspecified; I12.9 Hypertensive chronic kidney disease with stage 1 through stage 4 chronic kidney disease, or unspecified chronic kidney disease; E11.22 Type 2 diabetes mellitus with diabetic chronic kidney disease; N18.9 Chronic kidney disease, unspecified; Z91.14 Patient's other noncompliance with medication regimen; E87.70 Fluid overload, unspecified; E87.5 Hyperkalemia; R65.10 Systemic inflammatory response syndrome (SIRS) of non-infectious origin without acute organ dysfunction; E11.42 Type 2 diabetes mellitus with diabetic polyneuropathy; R05 Cough; R50.9 Fever, unspecified; E11.21 Type 2 diabetes mellitus with diabetic nephropathy
CPT/HCPCS: 36415; 36600; 50200; 71045-TC-FY; 74019-TC-FY; 76000-TC-FY; 76775-TC; 76856-TC; 80048; 80053; 80074; 81003; 82550; 82553; 82570; 82728; 82803; 82962; 83036; 83520; 83540; 83550; 83735; 83880; 83970; 84100; 84155; 84156; 84165; 84300; 84439; 84443; 84484; 85025; 85027; 85610; 85651; 86038; 86140; 86160; 86162; 86215; 86225; 86256; 86618; 86704; 86706; 86707; 86708; 86709; 86780; 86803; 86850; 86900; 86901; 87040; 87086; 87205; 87340; 87389; 93005; 93010; 93306-TC; 93970-TC; 94760; 97116-GP; 97161-GP; 99285-25; C9803; G0480; J0131; J1644; Q5106; U0003; U0005

== ENCOUNTER 2021-05-23 13:34 | Observation (INO) | payer OTHER ==
[2021-05-23 13:51] VITALS: BMI 30.2
[2021-05-23] MEDS ORDERED: SODIUM CHLORIDE 0.9% 500 ML INFUS.BAG IV ONE (15:13)
[2021-05-23] MEDS ORDERED: ACETAMINOPHEN INJECTION 100 ML IVPB ONE (15:21)
[2021-05-23] MEDS ORDERED: LOSARTAN POTASSIUM 25 MG TABLET PO ONE (15:23)
[2021-05-23] MEDS ORDERED: ACETAMINOPHEN 1000 MG/100 ML BAG IVPB ONE (15:23)
[2021-05-23] MEDS ORDERED: VANCOMYCIN 1,000 MG in DEXTROSE 5%-WATER - 250 ML IVPB ONE (15:25)
[2021-05-23] MEDS ORDERED: CEFEPIME HCL/D5W 1 GM/50 ML BAG IVPB ONE (15:25)
[2021-05-23] MEDS ORDERED: VANCOMYCIN 1 GRAM (PRE-DOCKED) 1,000 MG/250 ML BAG IVPB ONE (16:07)
[2021-05-23 16:14] LABS: BASO % 0.6 % (0-2.0); EOS % 0.8 % (0-4.5); HEMATOCRIT 33.9 % (35.4-49); HEMOGLOBIN 11.9 GM/dL (11.7-16.9); MCH 29.1 pg (25.7-33.7); MCHC 35.1 g/dl (32.0-35.9); MEAN CELL VOLUME 82.9 fl (80-96); MEAN PLT VOLUME 8.7 fl (7.5-11.1); MONO % 8.6 % (3.8-10.2); PLATELET COUNT 161 10^3/uL (134-434); RBC 4.09 M/mm3 (4.00-5.60); RDW 14.8 % (11.9-15.9); WHITE BLOOD COUNT 4.7 K/mm3 (4.0-10.0)
[2021-05-23 16:17] LABS: INR 1.06 (0.83-1.09); PROTHROMBIN TIME (PATIENT) 12.4 SEC (9.7-13.0)
[2021-05-23 16:20] LABS: ACTIVATED PTT 36.4 SECONDS (25.2-36.5)
[2021-05-23 16:25] LABS: CHLORIDE 101 mmol/L (98-107); SODIUM 136 mmol/L (136-145)
[2021-05-23 16:30] LABS: ANION GAP 11 MMOL/L (8-16); BLOOD UREA NITROGEN 46.2 mg/dL (7-18); CALCIUM 9.4 mg/dL (8.5-10.1); CO2 24 mmol/L (21-32)
[2021-05-23 16:31] LABS: ALBUMIN 4.4 g/dl (3.4-5.0); GLUCOSE,RANDOM 138 mg/dL (74-106)
[2021-05-23 16:33] LABS: CREATININE 6.7 mg/dL (0.55-1.3); SGOT/AST 16 U/L (15-37); SGPT/ALT 28 U/L (13-61)
[2021-05-23 16:35] LABS: BILIRUBIN,TOTAL 0.6 mg/dL (0.2-1); TOT PROT 8.5 g/dl (6.4-8.2)
[2021-05-23 16:36] LABS: ALK PHOS 119 U/L (45-117)
[2021-05-23] MEDS ORDERED: LOSARTAN POTASSIUM 50 MG TABLET ONE (16:38)
[2021-05-23] MEDS ORDERED: CEFEPIME 1 GM/100 ML BAG IVPB ONE (16:53)
[2021-05-23] MEDS ORDERED: ACETAMINOPHEN 650 MG/20.3 ML ORAL SOLUTION (CUPS) PO PRN (23:19)
[2021-05-24 00:15] LABS: EPI CELLS 15 /uL (0-25.1); HYALINE CASTS 2 /uL (0-3.1); PH,URINE 5.5 (5.0-8.0); URINE APPEARANCE CLEAR; URINE BACTERIA 3 /uL (0-1359); URINE BILIRUBIN NEGATIVE (NEGATIVE); URINE COLOR YELLOW; URINE GLUCOSE (UA) 1+ (NEGATIVE); URINE KETONE NEGATIVE (NEGATIVE); URINE LEUK ESTERASE NEGATIVE (NEGATIVE); URINE NITRITE NEGATIVE (NEGATIVE); URINE PROTEIN 4+ (NEGATIVE); URINE RBC 24 /uL (0-23.9); URINE UROBILINOGEN 0.2 mg/dL (0.2-1.0); URINE WBC 36 /uL (0-25.8)
[2021-05-24] MEDS ORDERED: HEPARIN NA (PORCINE) 5,000 UNITS/ML 1ML VIAL SQ SCH ×2 (06:00→10:00)
[2021-05-24] MEDS: INSULIN SLIDING SCALE (NOVOLOG) 1 VIAL SQ SCH ×3 (06:12→17:07)
[2021-05-24] MEDS: SEVELAMER CARBONATE 800 MG TAB (FP) PO SCH ×3 (08:38→17:05)
[2021-05-24] MEDS ORDERED: LOSARTAN POTASSIUM 25 MG TABLET PO SCH (10:00)
[2021-05-24] MEDS ORDERED: TORSEMIDE 20 MG TABLET (FP) PO SCH (10:00)
[2021-05-24] MEDS ORDERED: PT OWN MED DRAWER 7, Y5N ONE ×2 (10:24→10:51)
[2021-05-24 11:32] LABS: BASO % 0.8 % (0-2.0); EOS % 0.7 % (0-4.5); HEMATOCRIT 29.5 % (35.4-49); LYMPH % 26.2 % (8-40); MCH 28.6 pg (25.7-33.7); MCHC 34.1 g/dl (32.0-35.9); MEAN PLT VOLUME 8.7 fl (7.5-11.1); MONO % 15.6 % (3.8-10.2); NEUT % 56.7 % (42.8-82.8); PLATELET COUNT 133 10^3/uL (134-434); RBC 3.51 M/mm3 (4.00-5.60); WHITE BLOOD COUNT 3.3 K/mm3 (4.0-10.0)
[2021-05-24 11:52] LABS: CHLORIDE 104 mmol/L (98-107); SODIUM 138 mmol/L (136-145)
[2021-05-24 11:53] LABS: ANION GAP 12 MMOL/L (8-16); BLOOD UREA NITROGEN 57.7 mg/dL (7-18); CO2 22 mmol/L (21-32)
[2021-05-24 11:55] LABS: GLUCOSE,RANDOM 223 mg/dL (74-106); MAGNESIUM 2.1 mg/dL (1.8-2.4)
[2021-05-24 11:57] LABS: BILIRUBIN,TOTAL 0.5 mg/dL (0.2-1); TOT PROT 6.7 g/dl (6.4-8.2)
[2021-05-24 11:58] LABS: PHOSPHOROUS 5.8 mg/dL (2.5-4.9); SGOT/AST 10 U/L (15-37); SGPT/ALT 22 U/L (13-61)
[2021-05-24 12:00] LABS: ALK PHOS 93 U/L (45-117)
[2021-05-24 12:12] LABS: ALBUMIN 3.4 g/dl (3.4-5.0); CREATININE 9.3 mg/dL (0.55-1.3)
[2021-05-24 13:36] LABS: LDH 134 U/L (87-246)
[2021-05-24 15:15] VITALS: BP 138/78; PULSE 86; TEMP 98.9
== END 2021-05-24 17:26 | disposition home or self-care (01) ==
LOC: JER 13:34 → JERBED 19:36 → INTOOBSV 19:36 → J5S 05-24 02:42
PROVIDERS: ADMIT Hospitalist; ATTEND Nurse Practitioner Acute Care
PROC: 3E03329 Introduction of Other Anti-infective into Peripheral Vein, Percutaneous Approach (ICD-10-PCS; principal; 2021-05-23)
PROC: 3E033GC Introduction of Other Therapeutic Substance into Peripheral Vein, Percutaneous Approach (ICD-10-PCS; 2021-05-23)
PROC: 3E013GC Introduction of Other Therapeutic Substance into Subcutaneous Tissue, Percutaneous Approach (ICD-10-PCS; 2021-05-23)
DX: U07.1 COVID-19 (principal); E11.22 Type 2 diabetes mellitus with diabetic chronic kidney disease; I12.0 Hypertensive chronic kidney disease with stage 5 chronic kidney disease or end stage renal disease; N18.6 End stage renal disease; Z99.2 Dependence on renal dialysis; Z79.84 Long term (current) use of oral hypoglycemic drugs; R79.1 Abnormal coagulation profile; Z79.4 Long term (current) use of insulin; Z91.14 Patient's other noncompliance with medication regimen
CPT/HCPCS: 36415; 71045-TC-FY; 80053; 81003; 82550; 82728; 82962; 83605; 83615; 83735; 84100; 84484; 85025; 85379; 85610; 85730; 86140; 86850; 86900; 86901; 87040; 87086; 87804; 93005; 93010; 93970-TC; 96365; 96368; 96372; 96375; 99285-25; C9803; G0378; J0131; J1644; U0003; U0005

== ENCOUNTER 2021-10-11 00:01 | Emergency (ER) | payer OTHER ==
[2021-10-11 01:16] VITALS: BP 150/87; PULSE 95; TEMP 98.9; BMI 28.2
[2021-10-11] MEDS ORDERED: LORATADINE 10 MG TABLET PO ONE (02:23)
[2021-10-11] MEDS ORDERED: LORATADINE 10 MG TABLET ONE (02:39)
== END 2021-10-11 03:35 | disposition home or self-care (01) ==
LOC: JER 00:01
DX: L24.9 Irritant contact dermatitis, unspecified cause (principal)
CPT/HCPCS: 99283-25

== ENCOUNTER 2022-05-22 11:26 | Emergency (ER) | payer OTHER ==
[2022-05-22 11:31] VITALS: BMI 29.8
[2022-05-22] MEDS ORDERED: IBUPROFEN 600 MG TABLET (FP) PO ONE (11:51)
[2022-05-22] MEDS ORDERED: ONDANSETRON *ODT* 4 MG TABLET SL ONE (11:51)
[2022-05-22 13:31] VITALS: BP 131/68; PULSE 101; RESP 18; TEMP 99.9
== END 2022-05-22 14:09 | disposition home or self-care (01) ==
LOC: JER 11:26
DX: U07.1 COVID-19 (principal)
CPT/HCPCS: 0241U-QW; 99283-25; Q0162